=== PATIENT | male | born 1965 | race Caucasian/White ===

== ENCOUNTER 2016-11-29 10:07 | Emergency (ER) | payer MEDICARE, MEDICAID ==
--- NOTE | ~2016-11-29 | ER ---
PATIENT'S NAME: SANTOS COLE [facility] AGE: 51 Y [address] ROOM: [place] [id number] LOCATION: ED ADMIT DATE: 11/29/2016 ER/Outpatient Report DISCHARGE DATE: 11/29/2016 FAMILY PHYSICIAN: Armando Brar MD ATTENDING PHYSICIAN: Lalito Chew TIME OF ARRIVAL: 1007 hours. TIME OF EVALUATION: 1015 hours. CHIEF COMPLAINT: Abdominal pain. HISTORY OF PRESENT ILLNESS: The patient is a 51-year-old male who presents to the emergency department today with a chief complaint of abdominal pain. He reports it started Wednesday, 3 days prior to arrival. Denies any fevers or chills. Does have some nausea. No vomiting. No diarrhea or constipation. He reports some pain with urination. Does have a history of diverticulitis, and it does feel somewhat similar to this. A sharp pain. It is currently mild in severity. PAST MEDICAL HISTORY: Muscular dystrophy, coronary artery disease, status post MO, congestive heart failure with EF of 20% to 25%, nephrolithiasis, and diverticulitis. PAST SURGICAL HISTORY: Appendectomy, ureteral stone removal, lithotripsy. SOCIAL HISTORY: The patient is bed and wheelchair bound, lives independently with caregivers. Denies any alcohol or illicit drug use. Denies any tobacco use. ALLERGIES: FLAGYL AND ERYTHROMYCIN. MEDICATIONS: Please see list. REVIEW OF SYSTEMS: All systems are reviewed by myself and are negative with the exception of those discussed in the HPI and Past Medical History. PHYSICAL EXAMINATION: PATIENT'S NAME: SANTOS COLE [facility] AGE: 51 Y [address] ROOM: [place] [address] LOCATION: [facility] ADMIT DATE: 11/29/2016 ER/Outpatient Report DISCHARGE DATE: 11/29/2016 FAMILY PHYSICIAN: Armando Brar MD ATTENDING PHYSICIAN: Lalito Chew VITAL SIGNS: Weight 75 pounds, blood pressure 138/82, pulse 82, respiratory rate 18, temperature 97.3, and oxygen saturation 96% on room air. GENERAL: The patient is a 51-year-old male who appears older than stated age. He is thin, lying in bed, in no acute distress or painful distress. Does have multiple contractures and heavily atrophied throughout his musculature. HEENT: Head is normocephalic and atraumatic. Pupils are equal, round, and reactive to light. Extraocular motions are intact. Mucous membranes moist. NECK: Supple. No nuchal rigidity. CARDIOVASCULAR: Regular rate and rhythm. No murmurs, rubs, or gallops. LUNGS: Clear to auscultation bilaterally. No wheezes, rales, or rhonchi. ABDOMEN: Soft. Mild diffuse tenderness to palpation. There is no rebound, rigidity, or guarding. Positive bowel sounds. MUSCULOSKELETAL: The patient does have extensive contractures in bilateral upper and lower extremities with muscular degeneration all over. NEUROLOGICAL: GCS 15. SKIN: Warm and dry. LABORATORY AND X-RAY DATA: CBC is unremarkable. Coags are normal. Lactate is normal. Procalcitonin is 0.16. CMP is normal. Urinalysis shows 100 leukocyte esterase, 30 protein, ketone 150, blood 50, wbc's 10 to 20, rbc's 5 to 10, rare epithelials, and rare bacteria. LFTs are normal. Lipase is normal. Cardiac enzymes are normal. CT scan of the abdomen and pelvis was obtained with IV contrast. I have discussed the results with the radiologist, shows no acute process, his bladder stone. There is no obvious evidence of diverticulitis. IMPRESSION: 1. Acute generalized nonsurgical abdominal pain, unclear etiology. 2. Acute urinary tract infection. 3. Initial visit. EMERGENCY DEPARTMENT COURSE: The patient was brought back to the examination room. Seen and evaluated by myself. IV was established. Laboratory analysis and imaging were obtained as described above. I have given the patient 2 mg of morphine x2. He is given a liter of normal saline. I have discussed results with the patient. Re- examined the patient's abdominal exam. He continues to have a nonsurgical abdominal exam at this time. I do feel he is safe for outpatient evaluation and treatment. I have asked that he follow up with Dr. Brar in 1 to 2 days for re-evaluation. I have written a prescription for Augmentin for home. DISPOSITION: The patient is discharged to home in good condition. PATIENT'S NAME: SANTOS COLE [facility] AGE: 51 Y [address] ROOM: [place] [address] LOCATION: [facility] ADMIT DATE: 11/29/2016 ER/Outpatient Report DISCHARGE DATE: 11/29/2016 FAMILY PHYSICIAN: Armando Brar MD ATTENDING PHYSICIAN: Lalito Chew DO SHAYNA HANCOCK/modl /[id number] d: 11/29/16 1354 t: 11/30/16 0759, OUTPATIENT REPORT
[~2016-11-29 10:07] MED LIST: ACIDOPHILUS1 EAC4; ACIDOPHILUS1 EACH PO; ASPIRIN EC325 MG PO; CHILDREN'S ASPI81 MG; COREG 3.1253.125 MG; COREG 3.1253.125 MG PO; COREG6.25 MG PO; ENSURE PLUS237 ML PO; FIBER LAX625 MG PO; FLOMAX0.4 MG PO; LASIX20 MG; LASIX20 MG PO; PRILOSEC10 MG; PRILOSEC20 MG PO; ZOCOR10 MG; ZOCOR10 MG PO
[2016-11-29 11:09] LABS: BASOPHIL % 0.2 %; HEMATOCRIT 41.9 % (37.0-53.0); HEMOGLOBIN 13.9 g/dL (12.0-17.0); IMMATURE GRANULOCYTE % 0.2 %; LYMPHOCYTE # 0.8 K/uL (0.8-4.0); LYMPHOCYTE % 8.1 %; MCHC 33.2 gm/dL (32.0-36.5); MCV 96.5 fl (83.0-98.0); MONOCYTE # 0.9 K/uL (0.0-1.0); MONOCYTE % 8.9 %; MPV 11.1 fl (9.4-12.4); NEUTROPHIL # (ANC) 8.5 K/uL (1.4-9.0); NEUTROPHIL % 82.6 %; NRBC % 0 /100WBC (0-0.00); PLATELET COUNT 143 K/uL (150-450); RBC 4.34 M/uL (4.00-6.00); RDW-CV 13.5 % (11.9-14.6); WBC 10.3 K/uL (4.0-11.0)
[2016-11-29 11:24] LABS: INR - (THERAPEUTIC) 1.01 (0.92-1.07); PROTIME 10.6 SECONDS (9.8-11.4); PTT 22 SECONDS (25-32)
[2016-11-29 11:35] LABS: ALBUMIN 3.4 gm/dL (3.5-5.0); ALK PHOS 80 IU/L (33-138); ALT 12 IU/L (12-78); ANION GAP 10.6 (10.0-19.0); AST 16 IU/L (10-40); BLOOD UREA NITROGEN 21 mg/dL (6-24); CALCIUM 8.8 mg/dL (8.5-10.5); CHLORIDE 109 mMol/L (96-110); CO2 25 mMol/L (22-32); CPK 13 IU/L (35-332); POTASSIUM 3.6 mMol/L (3.7-5.1); SODIUM 141 mMol/L (135-145); TOTAL BILIRUBIN 0.5 mg/dL (0.0-1.5); TOTAL PROTEIN 7.2 g/dL (6.0-8.4)
[2016-11-29 11:53] LABS: CREATININE < 0.2 mg/dL (0.6-1.3)
[2016-11-29 12:03] LABS: BILIRUBIN URINE NEGATIVE (NEGATIVE); BLOOD URINE 50 /UL (NEGATIVE); COLOR URINE YELLOW (YELLOW); GLUCOSE URINE NEGATIVE (NEGATIVE); KETONE URINE 150 mg/dL (NEGATIVE); LEUKOCYTES URINE 100 /UL (NEGATIVE); NITRITE URINE NEGATIVE (NEGATIVE); PROTEIN URINE 30 mg/dL (NEGATIVE); TURBIDITY URINE CLEAR (CLEAR); UROBILINOGEN URINE NORMAL (NORMAL)
[2016-11-29 12:08] LABS: BACTERIA URINE RARE (NEGATIVE); EPITHELIAL URINE RARE #/HPF (NEGATIVE); MUCUS URINE 1+ (NEGATIVE)
== END 2016-11-29 13:13 | disposition disaster alternative care site (69) ==
LOC: GMED 10:07
PROVIDERS: Emergency Medicine
DX: N39.0 Urinary tract infection, site not specified (principal); I50.9 Heart failure, unspecified; E78.00 Pure hypercholesterolemia, unspecified; K21.9 Gastro-esophageal reflux disease without esophagitis; Z87.442 Personal history of urinary calculi; Z90.49 Acquired absence of other specified parts of digestive tract; Z98.890 Other specified postprocedural states; Z88.1 Allergy status to other antibiotic agents; Z88.8 Allergy status to other drugs, medicaments and biological substances; Z79.82 Long term (current) use of aspirin; Z79.899 Other long term (current) drug therapy
CPT/HCPCS: J2001; J2270; J2405; J7030; Q9967